=== PATIENT | female | born 1985 | race Caucasian/White ===

== ENCOUNTER 2021-11-11 18:37 | Inpatient (IN) | payer OTHER, MEDICAID, SELFPAY ==
[2021-11-11 18:46] VITALS: BMI 31.7
--- NOTE | 2021-11-11 18:58 | PC.NURSE ---
Dressing removed to right FA. Serosanguinous and yellow drainage noted to old dressing. Wound measures L 0.75 cm by W 9. 5 cm. Wound bed is black and draining. Surrounding tissue is red and warm. Patient states arm is painful. Physician notified with orders for consult received.
[2021-11-11 19:01] VITALS: RESP 17
[2021-11-11 19:25] LABS: Add Urine Microscopic? YES; Bilirubin Urine Neg (Negative); Blood Urine 2+ (Negative); Glucose Urine UA Norm (Normal); Ketones Urine Negative (Negative); Leukocyte Esterase Urine Negative (Negative); Nitrate Urine Negative (Negative); Protein Urine Neg (Negative); Urine Appearance Clear (CLEAR); Urine Color Yellow (Yellow); Urobilinogen Urine 1 mg/dL (Negative); pH Urine 7 (5-7)
[2021-11-11 19:26] LABS: Add Urine Culture? No; Bacteria Urine TRACE /hpf; RBC Urine 0-4 /hpf (0-2); WBC Urine RARE /hpf (0-5)
[2021-11-11 20:09] LABS: Amphetamines Screen Urine Negative (Negative); Barbiturates Screen Urine Negative (Negative); Benzodiazepines Screen Urine Positive (Negative); Cocaine Screen Urine Negative (Negative); Opiate Screen Urine Negative (Negative); PCP Screen Urine Negative (Negative); THC Screen Urine Negative (Negative)
[2021-11-11] MEDS: LORazepam 1 mg Tablet PO (21:05)
--- NOTE | 2021-11-11 21:23 | P.CONIM_ITS ---
Providers/Reason For Consult Consulting Physician/Specialty*: Dr. Cortes, hospital medicine Reason for Consult*: Right antecubital laceration Attending Physician: Arun Blue MD History of Present Illness History of Present Illness The patient is a 36-year-old female who was transferred from [facility] who claims that she was transferred here to be sent to here . During my encounter with the patient, she is argumentative, uncooperative, vague with her answers. During the course of my interview she projects her own fee lings/[place]s on to my question/commentary. Based on my patient encounter with the patient, from a psychiatric standpoint she appears to suffer from antisocial personality disorder. Unfortunately because of the patient's demeanor, I am unable to obtain further history of present illness. I have been requested to provide consultation to the patient due to laceration of her right antecubital area approximately 2 inches distal to the antecubital fossa and approximately 3 inches wide in a transverse plane. Review of Systems General: Reports: 10 or more systems reviewed and unremarkable except in HPI and below Medications/Allergies Home Medications Medication Instructions Recorded Confirmed Last Taken Type cephalexin 500 mg capsule 500 mg PO BID@0900,2100 11/11/21 11/11/21 11/09/21 08:00 History penicillin V potassium 500 mg 500 mg PO QID 11/11/21 11/11/21 11/09/21 08:00 History tablet sulfamethoxazole 800 800 tab PO BID@0900,2100 11/11/21 11/11/21 11/09/21 08:00 History mg-trimethoprim 160 mg tablet Allergies Allergy/AdvReac Type Severity Reaction Status Date / Time ibuprofen Allergy Unknown Verified 11/11/21 18:50 naproxen Allergy Unknown Verified 11/11/21 18:50 PFSH Acute Female Reproductive History: Date of last menstrual period: 11/06/21 Vitals/I&O/Wt Last Vital Signs Resp 17 11/11/21 19:01 Weight last 48 hrs Weight 84.368 kg Weight 76.204 kg Physical Exam Narrative: General: -Alert -No acute distress -No dyspnea -No tachypnea Head: -Atraumatic -Normocephalic Eyes: -Pupils equally round and reactive to light and accommodation -Extraocular muscles intact Neurological: -Cranial nerves II-XII intact Neck: -No jugular venous distention -No thyromegaly -No cervical lymphadenopathy Heart: -Regular rate -Regular rhythm -No murmurs -No gallops -No rubs Lungs: -No wheeze -No rhonchi -No rales ? Abdomen: -Normal bowel sounds in all four quadrants -No rebound -No guarding -No tenderness Extremities: -2/4 pulse in all four extremities -No clubbing -No cyanosis -No edema -No calf tenderness present bilaterally -Negative Stacie?s sign bilaterally Musculoskeletal: -5/5 bilateral upper extremity strength -5/5 bilateral lower extremity strength -Sensorium of bilateral upper extremities are equal and intact -Sensorium of bilateral lower extremities are equal and intact ? Additional Details / Additional Findings / Exceptions / Miscellaneous: A&P Assessment and plan (1) Laceration: Status: Acute Plan Right antecubital laceration. This does not appear infected. I provided nursing staff with directives to irrigate the wound and to wrap with cotton gauze. I have informed the nursing staff as well as the psychiatrist that the patient will require consultation by the general surgeon for suturing due to the width and depth of the laceration with visible muscle tissue underneath. Will provide when necessary analgesia Psychiatric disorder, not otherwise specified. At the very least, I suspect the patient suffers from antisocial personality disorder. Will follow up on psychiatry's findings recommendations. From medical standpoint, we will check HIV, hepatitis panel, RPR, TSH, free T4, B12, folate level, 25 hydroxy vitamin D level, 1, 25 hydroxy vitamin D level Self-reported history of nephrotic syndrome. Will monitor renal function int ermittently Likely alcohol abuse. Seizure precautions. Vitamin B12 1000 my grams by mouth daily plus thiamine 100 Mill grams by mouth daily plus folic acid 1 mg by mouth daily plus multivitamin 1 tab by mouth daily. Patient received when necessary Ativan as needed for symptoms of withdrawal Obesity. The patient will be counseled regarding lifestyle modification Smoker. The patient becomes regarding smoking cessation DVT Proflex is. Encourage ambulation Consult Attestations Medical Necessity Statement: This medical consultation is medically necessary as witnessed by performance of this consultation Coding Level of Care Code Acute Career Placement Specialist for Darius Crisostomo Diagnoses Laceration
[2021-11-11] MEDS: HYDROcodone-acetaminophen 5-325 mg Tablet 1 TAB PO (21:34)
--- NOTE | 2021-11-11 22:19 | PC.NURSE ---
Hospitalist at side, examined Right side AC wound. Open red beefy appearance. Wet/ dry drsg placed . Pain medication ordered- gave. Patient refuse labs, states she is tired. Explained to patient - surgeon will need results. Patient refused- pt states in morning
[2021-11-12 06:00] VITALS: BP 106/97; PULSE 85; RESP 18; TEMP 37; O2SAT 95
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
[2021-11-12] MEDS: nicotine 2 mg Gum BUCCAL ×2 (07:45→16:00)
[2021-11-12] MEDS: cyanocobalamin 1,000 mcg Tablet 1000 MCG PO (08:32)
[2021-11-12] MEDS: folic acid 1 mg Tablet PO (08:32)
[2021-11-12] MEDS: OLANZapine 5 mg ODT PO ×2 (08:32→16:00)
[2021-11-12] MEDS: HYDROcodone-acetaminophen 5-325 mg Tablet 1 TAB PO ×3 (08:32→16:54)
[2021-11-12] MEDS: thiamine 100 mg Tablet PO (08:32)
[2021-11-12] MEDS: multivitamin therapeutic Tablet 1 TAB PO (08:32)
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
[2021-11-12 09:56] LABS: Basophils % 0.7 %; Eosinophils # 0.1 10^3/uL (0.0-0.8); Eosinophils % 1.4 %; Hematocrit 37.9 % (37.0-47.0); Hemoglobin 12.4 g/dL (11.5-15.3); Lymphocytes # 1.7 10^3/uL (0.8-4.8); Lymphocytes % 28.6 %; Mean Corpuscular HGB Conc 32.7 g/dL (30.0-36.0); Mean Corpuscular Hemoglobin 31.3 pg (28.0-34.0); Mean Corpuscular Volume 95.7 fl (81-99); Mean Platelet Volume 9.5 fL (7.4-10.4); Monocytes # 0.5 10^3/uL (0.2-0.9); Monocytes % 9.1 %; Neutrophils # 3.55 10^3/uL (1.8-7.7); Nucleated Red Blood Cells % 0 %; Platelet Count 351 10^3/cmm (130-400); Red Blood Count 3.96 10^6/uL (4.1-5.3); Red Cell Distribution Width 14.9 % (12.1-15.1); White Blood Count 5.9 10^3/uL (4.0-10.0)
--- NOTE | 2021-11-12 10:07 | XR_ITS ---
WS: [id number] XR elbow RT 2V [id number] REASON FOR EXAM: cut antecubital fossa, check for foreign body FINDINGS: No bony or joint abnormality identified. No radiopaque soft tissue foreign body identified. XR/XR elbow RT 2V [id number] IMPRESSION: No significant abnormality.
--- NOTE | 2021-11-12 10:07 | PC.NURSE ---
Addendum entered by Nicolle Noble RN 11/12/21 17:13: Wound open with fat exposed. Minimal serous drainage noted to old dressing. Patient states there was pus in the wound last night, none visualized. Skin surrounding wound is slightly red from tape. Was medicated with PRN [place] prior to dressing change. Original Note: Dr. Aragon here to see patient. Informed RN he would order an Xray of right arm and surgical consult. Educated patient nothing to eat or drink until surgery sees her. Verbalized understanding. Patien requested a heat pack, Education provided that we could not do a heat back due to increasing her risk for infection. Verbalized understanding. Redressed right forearm with wet to dry dressing. Tolerated well.
[2021-11-12] MEDS: tetanus-diphtheria tox (adult) 0.5 mL SDV IM (10:12)
--- NOTE | 2021-11-12 10:34 | PM.CONSULT ---
Providers/Reason For Consult Consulting Physician/Specialty*: Lawrence Kay MD Reason for Consult*: Laceration right upper extremity Requesting Physician: Dr. Aragon Attending Physician: Arun Blue MD History of Present Illness History of Present Illness Chief Complaint: Wound of the right forearm History of present illness: Ms.Sara Luna is a 36 year old female admitted to the psychiatry service and apparently the patient sustained a proximal right forearm laceration which was self-inflicted and appears to be patient was attempting suicide. General surgery was consulted for further evaluation of the wound as the wound took place last Wednesday and I was under the impression that it is a deeper wound that may have involved underlying vessels and nerves and potential tendons but further clarification was done and patient was seen and evaluated at the Neuropsych Unit in the presence of her caring nurse. Patient denies any nausea vomiting fevers or chills or neurological symptoms related to the wound Review of Systems General: Reports: 10 or more systems reviewed and unremarkable except in HPI and below Medications/Allergies Home Medications Medication Instructions Recorded Confirmed Last Taken Type cephalexin 500 mg capsule 500 mg PO BID@0900,209911/11/21 11/11/21 11/09/21 08:00 History penicillin V potassium 500 mg 500 mg PO QID 11/11/21 11/11/21 11/09/21 08:00 History tablet sulfamethoxazole 800 800 tab PO BID@0900,2100 11/11/21 11/11/21 11/09/21 08:00 History mg-trimethoprim 160 mg tablet Allergies Allergy/AdvReac Type Severity Reaction Status Date / Time ibuprofen Allergy Unknown Verified 11/12/21 13:13 naproxen Allergy Unknown Verified 11/12/21 13:13 Current Medications Generic Name Dose Route Start Last Admin Trade Name Freq PRN Reason Stop Dose Admin Hydrocodone Bitart/Acetaminophen 1 tab 11/11/21 21:23 11/12/21 08:32 Hydrocodone-Acetaminophen 5-325 Mg Tablet PO 1 tab Q6H PRN Administration MODERATE PAIN Cyanocobalamin 1,000 mcg 11/12/21 09:00 11/12/21 08:32 Cyanocobalamin 1,000 Mcg Tablet PO 1,000 mcg DAILY FIDENCIO Administration Folic Acid 1 mg 11/12/21 09:00 11/12/21 08:32 Folic Acid 1 Mg Tablet PO 1 mg DAILY FIDENCIO Administration Multivitamins Therapeutic 1 tab 11/12/21 09:00 11/12/21 08:32 Multivitamin Therapeutic Tablet PO 1 tab DAILY FIDENCIO Administration Nicotine Polacrilex 2 mg 11/11/21 19:00 11/12/21 07:45 Nicotine 2 Mg Gum BUCCAL 2 mg Q2H PRN Administration NICOTINE WITHDRAWAL Olanzapine 5 mg 11/11/21 19:00 11/12/21 08:32 Olanzapine 5 Mg Odt PO 5 mg Q4H PRN Administration Agitation/Psychosis Thiamine Mononitrate 100 mg 11/12/21 09:00 11/12/21 08:32 Thiamine 100 Mg Tablet PO 100 mg DAILY FIDENCIO Administration PFSH Acute Female Reproductive History: Date of last menstrual period: 11/06/21 Vitals/I&O/Wt Last Vital Signs Temp 98.6 F 11/12/21 06:00 Pulse 85 11/12/21 06:00 Resp 18 11/12/21 06:00 BP 106/97 11/12/21 06:00 Pulse Ox 95 11/12/21 06:00 Weight last 48 hrs Weight 186 lb Weight 168 lb Physical Exam Const: COMMON NORMALS: no acute distress and patient oriented x3 GENERAL APPEARANCE: cooperative ORIENTATION/CONSCIOUSNESS: Yes awake, Yes oriented to person, Yes oriented to place and Yes oriented to time HENMT: COMMON NORMALS: normocephalic HEAD & SCALP: normocephalic Eye: COMMON NORMALS: Equal, round and reactive pupils present and no scleral icterus PUPIL: Yes Equal, round and reactive pupils present Lymph: LYMPHATIC: no lymphadenopathy noted Chest: COMMONS NORMALS: normal inspection of the chest Resp: COMMON NORMALS: normal respiratory effort and clear to auscultation bilaterally AUSCULTATION: clear to auscultation bilaterally Cardio: COMMON NORMALS: S1 normal heart sound present and S2 normal heart sound present; negative for No murmurs present (Cardio) HEART SOUNDS: S1 normal heart sound present and S2 normal heart sound present GI: COMMON NORMALS: Soft to palpation; negative for No hepatosplenomegaly present INSPECTION: Yes normal to inspection PALPATION: Yes Soft to palpation, No Firmness to palpation present (GI), No Tenderness to palpation present (GI), No Guarding due to palpation present (GI), No Rigid due to palpation and No No hepatosplenomegaly present Extremity: NARRATIVE EXTREMITY EXAM: No evidence of compartment syndrome and neurovascular examination is intact in comparison to bilateral upper extremities EXTREMITY IMAGE (FRONT): 1. Proximal third of the right forearm showing a wound measures about 9 x 2 x 1[address] to the muscular fascial layer involving skin subcutaneous in addition to mild violation to the left forearm muscle group fascia, no evidence of surrounding cellulitis or infection or discharge Neuro: COMMON NORMALS: patient oriented x3 SENSORIUM/ORIENTATION: Yes oriented to person, Yes oriented to place and Yes oriented to time Psych: COMMON NORMALS: mental status grossly normal Skin: COMMON NORMALS: no rashes or lesions noted GENERAL SKIN EXAM: no rashes or lesions noted Data : 11/12/21 09:47 11/12/21 09:47 A&P Assessment and plan (1) Laceration: After history taking physical examination and reviewing the x-rays of the forearm myself with my personal interpretation, as patient did sustain wound laceration last Wednesday it would be too late to surgically close the wound although I did offer the patient to apply couple of stitches to downsize the wound but she was not interested. 1-nutrition optimization 2-wound care in the form of daily packing with wet-to-dry using 1 inch Nu Gauze followed by secondary dressing in the form of 4 x 4's 3-management of medical comorbidities per psych and hospitalist services 4-recommend to have the patient seen at the wound care center on weekly basis for local wound care 5-assurance and education All questions have been answered and all concerns have been addressed to patient's satisfaction. Status: Acute Consult Attestations Medical Necessity Statement: Per admitting service Time Spent in Patient Care: 16 - 35 minutes Coding Level of Care Code Acute Finance Effectiveness Manager for Darius Crisostomo Diagnoses Laceration
[2021-11-12 10:42] LABS: 25 Hydroxy Vitamin D 11 ng/mL (30-100); Alanine Aminotransferase 8 U/L (0-33); Alkaline Phosphatase 58 IU/L (35-105); Anion Gap 13.9 (5-19); Aspartate Amino Transferase 12 U/L (0-32); Blood Urea Nitrogen 10 mg/dL (6-20); Calcium 8.9 mg/dL (8.5-10.5); Carbon Dioxide 22 mmol/L (22-29); Chloride 108 mmol/L (98-107); Globulin 3.2 g/dL (1.3-4.6); Glomerular Filtration Rate 254.7 mL/min (90-130); Glucose 108 mg/dL (65-115); Magnesium 1.6 mg/dL (1.7-2.3); Osmolality Calculated 290 mOsm/kg (285-295); Potassium 3.9 mmol/L (3.5-5.1); Sodium 140 mmol/L (136-145); Thyroid Stimulating Hormone 2.06 uIU/mL (0.27-4.20); Total Bilirubin 0.3 mg/dL (0.15-1.2); Total Protein 7.2 g/dL (6.6-8.7); Vitamin B12 251 pg/mL (232-1245)
[2021-11-12 11:12] LABS: Free T4 Free Thyroxine 0.95 ng/dL (0.82-1.77)
[2021-11-12 11:36] LABS: Folate Level > 20.0 ng/mL (4.8-37.3)
[2021-11-12 11:40] LABS: Hepatitis B Core IgM Non-Reactive (Nonreactive); Hepatitis B Surface Antigen Non-Reactive (Nonreactive); Hepatitis C Virus Antibody Non-Reactive (Nonreactive)
[2021-11-12 11:52] LABS: HIV 1 & 2 Antibody Non-Reactive (Non-Reactiv); HIV 1 & 2 Antigen Non-Reactive (Non-Reactiv)
[2021-11-12] MEDS: hyDROXYzine 25 mg Capsule 50 MG PO (12:28)
--- NOTE | 2021-11-12 12:28 | P.PN_ITS ---
Subjective Subjective: Patient was evaluated for 9 x 2 cm right arm open wound all the way down to muscular fascia Patient was sitting at the bedside, patient is stating that he suffered from this wound about 6 days ago, she was under the influence of drugs, she is not able to provide any details other than passing out after cutting herself No neurovascular compromise Vitals/I&O/Wt Last Vital Signs Temp 98.6 F 11/12/21 06:00 Pulse 85 11/12/21 06:00 Resp 18 11/12/21 06:00 BP 106/97 11/12/21 06:00 Pulse Ox 95 11/12/21 06:00 Weight last 48 hrs Weight 84.368 kg Weight 76.204 kg Physical Exam Narrative: Patient was sitting at the bedside Cooperative Right hand almond paste molder adequate strength No neurovascular compromise Right forearm wound 9 x 2 cm about [address] the way down to muscular layer I did not see any active purulent drainage I do not see active signs of infection, there is granulation tissue around the edges of the wound Patient is alert and oriented PERRLA Saturating well on room air S1, S2 Abdomen soft Data : 11/12/21 09:47 11/12/21 09:47 A&P Assessment and plan (1) Suicide attempt: Status: Acute (2) Self-inflicted laceration of right wrist: Status: Acute (3) Schizophrenia: Status: Acute (4) Laceration: Status: Acute Plan Right forearm open wound without active signs of infection or cellulitis No active signs of infection prophylaxis with Bactrim Appreciate general surgery recommendations Patient will need outpatient wound care follow-up Wound care and dressing change order written by Dr. Kay Will put in wound care follow-up She has remained afebrile White count 5.9 Magnesium to be repleted Please follow-up with general surgery if she had any other concerns or questions related to her wound care management, medical team will sign off, will arrange wound care referral at the time of discharge. Thank you for consulting hospital medicine Attestations Medical Necessity Statement*: 20mins Time Spent in Patient Care: 20mins Coding Level of Care Code Acute Electrical Hardware Engineer for [facility] Fwd Diagnoses Suicide attempt T14.91XA Self-inflicted laceration of right wrist S61.511A; X78.9XXA Schizophrenia F20.9 Laceration
[2021-11-12 14:00] VITALS: BP 111/68; PULSE 94; RESP 17; TEMP 36.5; O2SAT 97
--- NOTE | 2021-11-12 15:38 | PC.SOCIAL ---
Patient attended and participated in group.
[2021-11-12] MEDS: sulfamethoxazole-trimeth DS 160-800 mg Tablet 1 TAB PO (17:29)
[2021-11-12 20:47] VITALS: RESP 18
[2021-11-13 06:00] VITALS: BP 116/74; PULSE 74; RESP 16; TEMP 36.8; O2SAT 95
[2021-11-13] MEDS: HYDROcodone-acetaminophen 5-325 mg Tablet 1 TAB PO ×3 (06:38→18:00)
[2021-11-13] MEDS: nicotine 2 mg Gum BUCCAL ×3 (06:38→17:10)
--- NOTE | 2021-11-13 08:24 | PC.NURSE ---
pt up to dayroom for breakfast, pt is tearful and anxious, denies SI/HI/AVH. pt dressing to RT FA C/D/I, med nurse to admin meds for anxiety per pt request
[2021-11-13] MEDS: multivitamin therapeutic Tablet 1 TAB PO (08:37)
[2021-11-13] MEDS: thiamine 100 mg Tablet PO (08:37)
[2021-11-13] MEDS: cyanocobalamin 1,000 mcg Tablet 1000 MCG PO (08:37)
[2021-11-13] MEDS: sulfamethoxazole-trimeth DS 160-800 mg Tablet 1 TAB PO ×2 (08:37→17:41)
[2021-11-13] MEDS: folic acid 1 mg Tablet PO (08:37)
[2021-11-13] MEDS: hyDROXYzine 25 mg Capsule 50 MG PO ×3 (08:38→20:06)
--- NOTE | 2021-11-13 09:21 | PC.NURSE ---
Addendum entered by Faustino Narayan RN 11/13/21 09:47: PT RESTING IN BED, O S/S OF DISTRESS, WILL CONTINUE TO MONITOR. Original Note: PRN MED PT GIVEN 50MG VISTARIL FOR STATED ANXIETY, WILL CONTINUE TO MONITOR.
[2021-11-13] MEDS: acetaminophen 325 mg Tablet 650 MG PO ×2 (11:28→20:06)
[2021-11-13] MEDS: OLANZapine 5 mg ODT PO ×2 (11:28→17:10)
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
[2021-11-13 14:00] VITALS: BP 112/66; PULSE 79; RESP 18; TEMP 36.6; O2SAT 94
--- NOTE | 2021-11-13 16:31 | PC.SOCIAL ---
Patient did not attend group.
[2021-11-13] MEDS: ibuprofen 800 mg tablet PO (17:10)
--- NOTE | 2021-11-13 19:48 | PC.NURSE ---
wet to dry dressing applied with 4x4 gauze pads, irrigated with normal saline 0.9%, tape used to secure wound along with tegaderm film.
[2021-11-13 20:35] VITALS: BP 114/76; PULSE 85; RESP 18; TEMP 36.3; O2SAT 97
--- NOTE | 2021-11-13 21:25 | PC.NURSE ---
2006 requested something for pain. She was given tylenol.
[2021-11-14] MEDS: thiamine 100 mg Tablet PO (08:47)
[2021-11-14] MEDS: multivitamin therapeutic Tablet 1 TAB PO (08:47)
[2021-11-14] MEDS: nicotine 2 mg Gum BUCCAL ×2 (08:47→15:15)
[2021-11-14] MEDS: cyanocobalamin 1,000 mcg Tablet 1000 MCG PO (08:48)
[2021-11-14] MEDS: escitalopram 10 mg Tablet PO (08:48)
[2021-11-14] MEDS: folic acid 1 mg Tablet PO (08:48)
[2021-11-14] MEDS: sulfamethoxazole-trimeth DS 160-800 mg Tablet 1 TAB PO (08:48)
[2021-11-14] MEDS: HYDROcodone-acetaminophen 5-325 mg Tablet 1 TAB PO ×2 (08:50→13:32)
[2021-11-14] MEDS: hyDROXYzine 25 mg Capsule 50 MG PO ×2 (08:53→16:11)
--- NOTE | 2021-11-14 11:19 | PC.NURSE ---
Dressing Change Old dressing removed, wound irrigated with NS and patted dry, new wet to dry gauze and 4x4 applied.
[2021-11-14] MEDS: OLANZapine 5 mg ODT PO (11:36)
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
--- NOTE | 2021-11-14 13:46 | PC.SOCIAL ---
Patient did not attend group.
[2021-11-14 14:00] VITALS: BP 137/82; PULSE 95; RESP 17; TEMP 36.3; O2SAT 98
[2021-11-14 14:53] VITALS: BP 137/82; PULSE 95; RESP 17; TEMP 36.3; O2SAT 98
--- NOTE | 2021-11-14 17:00 | PC.NURSE ---
Discharge This nurse discussed discharge paperwork, meds, and follow up appointments with patient. Nurse explained to patient that she would need to follow up with wound care in 1-3 days. Nurse showed patient earlier during a dressing change how to properly change dressing and discussed this again in detail at discharge. Nurse returned patients belongings, meds, and money from the safe. Nurse walked with patient off the floor to the parking lot to ready transportation van.
== END 2021-11-14 16:54 | disposition home or self-care (01) | DRG 885 ==
PROVIDERS: Internal Medicine; Admitting Provider Psychiatry & Neurology Psychiatry; Visit Provider Psychiatry & Neurology Psychiatry
DX: F20.9 Schizophrenia, unspecified (principal); S51.811A Laceration without foreign body of right forearm, initial encounter; X78.9XXA Intentional self-harm by unspecified sharp object, initial encounter; F10.10 Alcohol abuse, uncomplicated; F17.210 Nicotine dependence, cigarettes, uncomplicated; E66.9 Obesity, unspecified; Z68.35 Body mass index [BMI] 35.0-35.9, adult
CPT/HCPCS: 36415; 73070; 80053; 80074; 80306; 81001; 82306; 82607; 82746; 83735; 84439; 84443; 85025; 86709; 87806; 90471; 90714; 97165